=== PATIENT | male | born 1985 | race Caucasian/White ===

== ENCOUNTER → 2024-08-29 07:05 | Outpatient (REF) | payer BC, SELFPAY | LOC: MRI 3T 07:05 | PROVIDERS: ATTENDING PHYSICIAN Otolaryngology; FAMILY PHYSICIAN Family Medicine | DX: H90.41 Sensorineural hearing loss, unilateral, right ear, with unrestricted hearing on the contralateral side (principal); H93.11 Tinnitus, right ear | CPT/HCPCS: 70553; A9575 ==